=== PATIENT | male | born 1960 | race Caucasian/White ===

== ENCOUNTER 2021-03-28 09:19 | Day surgery (SDC) | payer MEDICAID ==
[~2021-03-28] VITALS: Ht 170.2 cm; Wt 109.0 kg
[~2021-03-28 09:19] MED LIST: SODIUM CHLORIDE 0.9% 1,000 ML IV ONE; SODIUM CHLORIDE 0.9% 1,000 ML ONE
[2021-03-28] MEDS ORDERED: PROPOFOL 1% 20 ML VIAL IVP ONE (09:20)
[2021-03-28] MEDS ORDERED: LIDOCAINE/PF 2% 5 ML VIAL IM ONE (09:20)
[2021-03-28 09:53] LABS: COVID AG,FIA SOURCE NASOPHARYNGEAL
[2021-03-28] MEDS ORDERED: AMOX1TAB16 PO (11:30)
[2021-03-28] MEDS ORDERED: EDOX60TA2 PO (11:30)
[2021-03-28] MEDS ORDERED: DUTA1CPM4 PO (11:30)
[2021-03-28] MEDS ORDERED: PYRI60TA PO (11:30)
[2021-03-28] MEDS ORDERED: PRED20 PO (11:30)
== END 2021-03-28 13:10 | disposition home or self-care (01) ==
LOC: SURGERY 09:19
PROVIDERS: ATTEND Internal Medicine Gastroenterology
DX: D12.2 Benign neoplasm of ascending colon (principal); D12.3 Benign neoplasm of transverse colon; N32.1 Vesicointestinal fistula; K57.32 Diverticulitis of large intestine without perforation or abscess without bleeding; K64.8 Other hemorrhoids; E66.3 Overweight; K57.30 Diverticulosis of large intestine without perforation or abscess without bleeding; Z20.822 Contact with and (suspected) exposure to COVID-19; G70.00 Myasthenia gravis without (acute) exacerbation; Z86.718 Personal history of other venous thrombosis and embolism; Z87.438 Personal history of other diseases of male genital organs; Z98.890 Other specified postprocedural states
CPT/HCPCS: 45380; 87426; 88305; C1769; C9803; J2704; J3490; J7030